=== PATIENT | male | born 1985 | race American Indian/Alaskan Native ===

== ENCOUNTER 2018-09-28 06:43 | Inpatient (IN) | payer MEDICAID, OTHER ==
[2018-09-28 07:03] VITALS: BMI 25.7
[2018-09-28 07:07] VITALS: O2SAT 100
--- NOTE | 2018-09-28 08:15 | ED PDOC ---
HPI: Psych/Substance Abuse Time Seen by Provider: 09/28/18 07:09 Chief Complaint (Nursing): Psychiatric Evaluation Chief Complaint (Provider): Psychiatric Evaluation History Per: Patient History/Exam Limitations: no limitations Associated Symptoms: Agitation Additional Complaint(s): 33 years old male presents to ER with agitation reporting he ran out of his medications. Patient is paranoid, pacing and agitated. He responds to action. Patient given Haldol and Ativan which he wanted. PMD: None provided Past Medical History Reviewed: Historical Data, Nursing Documentation, Vital Signs Vital Signs: Last Vital Signs Temp 98 F 09/28/18 08:00 Pulse 83 09/28/18 08:00 Resp 18 09/28/18 08:00 BP 128/70 09/28/18 08:00 Pulse Ox 100 09/28/18 08:00 - Medical History PMH: HTN, Schizophrenia Denies: Diabetes, Hepatitis, HIV, Chronic Kidney Disease, Seizures, Sexually Transmitted Disease - Surgical History Surgical History: No Surg Hx - Family History Family History: States: Unknown Family Hx - Social History Current smoker - smoking cessation education provided: Yes Alcohol: None Drugs: Cannabis (Marijuana) - Immunization History Hx Tetanus Toxoid Vaccination: No Hx Influenza Vaccination: No Hx Pneumococcal Vaccination: No - Home Medications Home Medications: Ambulatory Orders Medication Instructions Recorded Docusate [Colace] 100 mg PO BID 02/12/16 Lisinopril 5 mg PO DAILY 02/12/16 Paliperidone [Invega] 1.5 mg PO DAILY 02/12/16 Risperidone [Risperdal] 2 mg PO HS 02/12/16 Zolpidem [Ambien] 5 mg PO HS 02/12/16 buPROPion [Bupropion HCl] 75 mg PO DAILY 02/12/16 cloNIDine [Catapres] 0.1 mg PO HS 02/12/16 Ibuprofen [Motrin] 600 mg PO TID #21 tab 02/16/16 - Allergies Allergies/Adverse Reactions: Allergies Allergy/AdvReac Type Severity Reaction Status Date / Time No Known Allergies Allergy Verified 09/28/18 07:03 Review of Systems ROS Statement: Except As Marked, All Systems Reviewed And Found Negative Psych: Positive for: Other (Agitation) Physical Exam - Reviewed Nursing Documentation Reviewed: Yes Vital Signs Reviewed: Yes - Physical Exam Appears: Positive for: Well, No Acute Distress Head Exam: Positive for: ATRAUMATIC, NORMOCEPHALIC Skin: Positive for: Normal Color, Warm, Dry Eye Exam: Positive for: Normal appearance, EOMI, PERRL Neck: Positive for: Normal, Painless ROM, Supple Cardiovascular/Chest: Positive for: Regular Rate, Rhythm. Negative for: Murmur Respiratory: Positive for: Normal Breath Sounds. Negative for: Wheezing Gastrointestinal/Abdominal: Positive for: Normal Exam, Soft. Negative for: Tenderness Back: Positive for: Normal Inspection. Negative for: L CVA Tenderness, R CVA Tenderness Extremity: Positive for: Normal ROM. Negative for: Pedal Edema, Swelling Neurologic/Psych: Positive for: Alert, Oriented (to place and person), Mood/Affect (agitated and has some paranoia) - Laboratory Results Result Diagrams: 09/28/18 13:00 09/28/18 08:35 - ECG O2 Sat by Pulse Oximetry: 100 (RA) Pulse Ox Interpretation: Normal Medical Decision Making Medical Decision Making: Time: 0730 Initial Impression: Paranoia, delusions. Initial Plan: --Alcohol serum --BMP --Drug screen --Crisis evaluation --CBC --Ativan 2 mg IM --Haldol 5 mg IM --1:1 Observation --Urinalysis 1230 Labs reviewed and show elevated WBC of 14.2. Patient to be screened by [facility]. Will obtain CXR and EKG as part of plan. Scribe Attestation: Documented by Kathrine Moore, acting as a scribe for Taylor Liriano MD. Provider Scribe Attestation: All medical record entries made by the Scribe were at my direction and personally dictated by me. I have reviewed the chart and agree that the record accurately reflects my personal performance of the history, physical exam, medical decision making, and the department course for this patient. I have also personally directed, reviewed, and agree with the discharge instructions and disposition. Patient is medically cleared. There is no obvious cause of his leukocytosis but there is no evidence of an infectious process at present. Disposition - Clinical Impression Clinical Impression: Paranoid schizophrenia - Patient ED Disposition Is Patient to be Admitted: Yes Doctor Will See Patient In The: Hospital - Disposition Disposition: Transfer of Care Disposition Time: 14:00 Condition: FAIR Instructions: Schizophrenia Forms: [facility] (Thai) - Pt Status Changed To: Hospital Disposition Of: Inpatient - Admit Certification Admit to Inpatient:: After my assessment, the patient will require ho spitalization for at least two midnights. This is because of the severity of symptoms shown, intensity of services needed, and/or the medical risk in this patient being treated as an outpatient. - POA Present On Arrival: None
[2018-09-28 09:16] LABS: BLOOD UREA NITROGEN 14 mg/dl (9-20); CALCIUM 9.6 mg/dL (8.4-10.2); GFR NON-AFRICAN AMERICAN > 60
[2018-09-28 09:20] LABS: BASO % 0.2 % (0.0-2.0); EOS % 0.2 % (0.0-4.0); HEMOGLOBIN 13.9 g/dL (12.0-18.0); LYMPH # 1.7 K/uL (1.0-4.3); LYMPH % 12.1 % (20.0-40.0); MEAN CELL VOLUME 89.7 fl (80.0-94.0); MEAN CORPUSCULAR HEMOGLOBIN 29.6 pg (27.0-31.0); MEAN PLATELET VOLUME 9.3 fl (7.2-11.7); MONO % 7.2 % (0.0-10.0); NEUT # 11.4 K/uL (1.8-7.0); NEUT % 80.3 % (50.0-75.0); NRBC % 0.2 % (0.0-0.0); RBC 4.71 Mil/uL (4.40-5.90); RED CELL DISTRIBUTION WIDTH 14.8 % (11.5-14.5); WHITE BLOOD COUNT 14.2 K/uL (4.8-10.8)
[2018-09-28 12:14] LABS: URINE BACTERIA RARE (<OCC); URINE BILIRUBIN NEGATIVE (NEGATIVE); URINE BLOOD NEGATIVE (NEGATIVE); URINE CLARITY CLEAR (Clear); URINE COLOR YELLOW (YELLOW); URINE GLUCOSE (UA) NEG (NEGATIVE); URINE LEUKOCYTE ESTERASE NEG Leu/uL (Negative); URINE PROTEIN NEGATIVE (NEGATIVE); URINE UROBILINOGEN 0.2-1.0 mg/dL (0.2-1.0)
[2018-09-28 12:25] LABS: BARBITURATES, UR NEGATIVE (NEGATIVE); BENZODIAZEPINES, UR NEGATIVE (NEGATIVE); OPIATES, UR NEGATIVE (NEGATIVE); PHENCYCLIDINE, UR NEGATIVE (NEGATIVE)
--- NOTE | 2018-09-28 12:57 | RAD ---
Date of service: 09/28/2018 HISTORY: [facility] [place] COMPARISON: No prior. TECHNIQUE: Chest PA and lateral FINDINGS: LUNGS: No active pulmonary disease. PLEURA: No significant pleural effusion identified. No pneumothorax apparent. CARDIOVASCULAR: No aortic atherosclerotic calcification present. Normal cardiac size. No pulmonary vascular congestion. OSSEOUS STRUCTURES: No significant abnormalities. VISUALIZED UPPER ABDOMEN: Normal. OTHER FINDINGS: None. IMPRESSION: No active disease.
[2018-09-28 13:22] LABS: BASO # 0.1 K/uL (0.0-0.2); BASO % 0.6 % (0.0-2.0); EOS # 0.1 K/uL (0.0-0.7); EOS % 0.5 % (0.0-4.0); HEMOGLOBIN 14.1 g/dL (12.0-18.0); LYMPH # 3.1 K/uL (1.0-4.3); LYMPH % 19.4 % (20.0-40.0); MEAN CELL VOLUME 90.2 fl (80.0-94.0); MEAN CORPUSCULAR HEMOGLOBIN 29.5 pg (27.0-31.0); MEAN CORPUSCULAR HGB CONC 32.7 g/dL (33.0-37.0); MEAN PLATELET VOLUME 9.2 fl (7.2-11.7); MONO # 1.3 K/uL (0.0-0.8); MONO % 8.5 % (0.0-10.0); NEUT # 11.3 K/uL (1.8-7.0); RBC 4.77 Mil/uL (4.40-5.90); WHITE BLOOD COUNT 15.9 K/uL (4.8-10.8)
--- NOTE | 2018-09-28 15:02 | ED PDOC ---
- Laboratory Results Result Diagrams: 09/28/18 13:00 09/28/18 08:35 Lab Results: Troponin I < 0.0120 ng/mL (0.00-0.120) 09/28/18 12:52 Urine Color Yellow (YELLOW) 09/28/18 11:40 Urine Clarity Clear (Clear) 09/28/18 11:40 Urine pH 6.0 (5.0-8.0) 09/28/18 11:40 Ur Specific [place] 1.010 (1.003-1.030) 09/28/18 11:40 Urine Protein Negative mg/dL (NEGATIVE) 09/28/18 11:40 Urine Glucose (UA) Neg mg/dL (NEGATIVE) 09/28/18 11:40 Urine Ketones Negative mg/dL (NEGATIVE) 09/28/18 11:40 Urine Blood Negative (NEGATIVE) 09/28/18 11:40 Urine Nitrate Negative (NEGATIVE) 09/28/18 11:40 Urine Bilirubin Negative (NEGATIVE) 09/28/18 11:40 Urine Urobilinogen 0.2-1.0 mg/dL (0.2-1.0) 09/28/18 11:40 Ur Leukocyte Esterase Neg [place]/uL (Negative) 09/28/18 11:40 Urine Microscopic WBC 1 /hpf (0-5) 09/28/18 11:40 Urine Bacteria Rare (<OCC) 09/28/18 11:40 - ECG O2 Sat by Pulse Oximetry: 100 (RA) Pulse Ox Interpretation: Normal Medical Decision Making Medical Decision Making: Time: 1500 Patient signed out to me by Dr. Liriano, pending sobriety/ crisis evaluation. CT shows colitis and Dr. Gomez, the hospitalist said no for admission. Scribe Attestation: Documented by Kathrine Moore, acting as a scribe for Vladimir Noriega MD. Provider Scribe Attestation: All medical record entries made by the Scribe were at my direction and personally dictated by me. I have reviewed the chart and agree that the record accurately reflects my personal performance of the history, physical exam, medical decision making, and the department course for this patient. I have also personally directed, reviewed, and agree with the discharge instructions and disposition. Disposition - Clinical Impression Clinical Impression: Paranoid schizophrenia - Disposition Condition: FAIR
--- NOTE | 2018-09-28 18:00 | PCM.BM ---
Treatment Plan Problems - Problems identified on initial assessmt Auditory Hallucinations Date Initiated: 09/28/18 Time Initiated: 17:59 Assessment reference: NA Status: Active Medication nonadherence Date Initiated: 09/28/18 Time Initiated: 18:00 Assessment reference: NA Status: Active Ineffective Family Coping: Compromised Date Initiated: 09/28/18 Time Initiated: 18:02 Assessment reference: NA Status: Active Treatment assets and liabiliti Patient Assests: ADL independent, physically healthy Patient Liabilities: poor support system Family Contact Family involvement: Family/SO is involved Family contact: Patient agrees to contact
[2018-09-28] MEDS ORDERED: Alum-Mag Hydrox-Simethicone Susp (30 mL) PO PRN (19:39)
[2018-09-28] MEDS ORDERED: Magnesium Hydroxide Susp 30 ml UD PO PRN (19:39)
--- NOTE | 2018-09-29 10:27 | PCM.PSYCH ---
Initial Psychiatric Evaluation - Initial Psychiatric Evaluation Chief Complaint (in patient's own words): I know you are trying to transfer yoyur energy into me History of Present Illness and Precipitating Events: pt is 33 ys old male with previous diagnosis of schizophrenia paranoid type, pt presented to ER with disorganized behaviour and paranoid delusions stating he is tired as he knows people on the street are after him and trying to read his mind pt on evaluation on the unit angry, irritable, labile , pt appears internally preoccupied with thought blocking , responding to internal stimuli, slamming the phone, paranoid towards staff, stating they are trying to transfer negative energy on him collateral information/ patients grandmother, Cecelia, As per Cecelia, the patient was just discharged from [facility] [place] this past Monday. Cecelia stated that her grandson is diagnosed w/ Bipolar and Schizophrenia. As soon as he was discharged, the patient came in the house and was making threatening statements towards her and his sister. Current Medications: Active Medications Generic Name Dose Route Start Last Admin Trade Name Freq PRN Reason Stop Dose Admin Acetaminophen 650 mg 09/28/18 19:39 Tylenol 325mg Tab PO Q4 PRN pain level 4-7 Al Hydrox/Mg Hydrox/Simethicone 30 ml 09/28/18 19:39 Maalox Plus 30 Ml PO Q4 PRN Dyspepsia Diphenhydramine HCl 50 mg 09/28/18 19:39 Benadryl IM Q6 PRN Extrapyramidal S/S Unable PO Diphenhydramine HCl 50 mg 09/28/18 19:39 09/28/18 19:48 Benadryl PO 50 mg Q6 PRN Administration Extrapyramidal Symptoms Diphenhydramine HCl 50 mg 09/28/18 19:41 09/29/18 00:29 Benadryl PO 50 mg HS PRN Administration Sleep Haloperidol 5 mg 09/28/18 19:39 09/29/18 08:35 Haldol PO 5 mg Q4 PRN Administration Agitation Haloperidol Lactate 5 mg 09/28/18 19:39 Haldol IM Q4 PRN Agitation, Unable to Take PO Lorazepam 2 mg 09/28/18 19:39 Ativan IM Q6H PRN Anxiety/Agitation,Unable PO Lorazepam 2 mg 09/28/18 19:39 09/29/18 04:50 Ativan PO 2 mg Q6H PRN Administration Anxiety/Agitation Magnesium Hydroxide 30 ml 09/28/18 19:39 Milk Of Magnesia PO HS PRN Constipation Past Psychiatric History - Past Psychiatric History Explanation of prior treatment: multiple hospitalizations, hx of non compliance History of ETOH/Drug Use: cannabis abuse Pertinent Medical Hx (Current Medical&Sleep Prob, Allergies): Allergies Allergy/AdvReac Type Severity Reaction Status Date / Time No Known Allergies Allergy Verified 09/28/18 07:03 Unobtainable 09/28/18 Mental Status Examination - Personal Presentation Personal Presentation: Looks stated age - Affect Affect: Constricted Additional comments: angry , labile - Motor Activity Motor Activity: Psychomotor Agitation - Reliability in Providing Information Reliability in Providing Information: Poor, due to alteration in thoughts, Poor, due to altered mood - Speech Speech: Disorganized, Irrelevant - Mood Mood: Anxious - Formal Thought Process Formal Thought Process: Hallucinations, Delusions, Paranoia, Loosening of associations, Circumstantial - Hallucinations/Delusions Hallucinations: Auditory - Obsessions/Compulsions Obsessions: No Compulsions: No - Cognitive Functions Orientation: Person, Place Sensorium: Alert Attention/Concentration: Easily distracted Judgement: Imparied, as evidence by: Poor judgement, Imparied, as evidence by: Lack of insight into illness - Risk Risk: Homicidal, Diminished functioning - Strength & Assets Inventory Strength & Assets Inventory: Life experience - Limitations Additional comments: poor compliance DSM 5 DX - DSM 5 DSM 5 Diagnosis: schizophrenia paranoid type cannabis abuse - Recommended/Plan of Treatment Treatment Recommendations and Plan of Treatment: start haldol 5mg bid and 5mg qhs cogentin 1mg bid and 1mg qhs depakote 500mg bid monitor pt for psychopharmacological effects and side effects profile
[2018-09-29] MEDS: DiphenhydrAMINE 50 mg/ml Inj IM PRN (10:31)
--- NOTE | 2018-09-29 14:42 | CP.PCM.CON ---
History of Present Illness - History of Present Illness History of Present Illness: Reason for Consult: Per hospital protocol HPI: 33 year old male PMH schizophrenia admitted for schizophrenia and paranoid delusions. No other complaints at this time, MILDRED Eng. ROS: Per HPI, all other systems reviewed and neg Past Patient History - Infectious Disease Hx of Infectious Diseases: None - Past Medical History & Family History Past Medical History?: Yes - Past Social History Alcohol: None Drugs: Cannabis (Marijuana) - CARDIAC Hx Cardiac Disorders: Yes - PULMONARY Hx Tuberculosis: No - NEUROLOGICAL Hx Neurological Disorder: No Hx Seizures: No - HEENT Hx HEENT Problems: No - RENAL Hx Chronic Kidney Disease: No - ENDOCRINE/METABOLIC Hx Endocrine Disorders: No - HEMATOLOGICAL/ONCOLOGICAL Hx Blood Disorders: No Hx Human Immunodeficiency Virus (HIV): No - INTEGUMENTARY Hx Dermatological Problems: No - MUSCULOSKELETAL/RHEUMATOLOGICAL Hx Musculoskeletal Disorders: No - GASTROINTESTINAL Hx Gastrointestinal Disorders: Yes (constipation) - GENITOURINARY/GYNECOLOGICAL Hx Sexually Transmitted Disorders: No - PSYCHIATRIC Hx Anxiety: Yes Hx Schizophrenia: Yes Hx Substance Use: Yes (mj) - SURGICAL HISTORY Hx Surgeries: Yes Hx Herniorrhaphy: Yes (hernia repair 7-18 lt inguinal) - ANESTHESIA Hx Anesthesia: Yes Hx Anesthesia Reactions: No Meds Allergies/Adverse Reactions: Allergies Allergy/AdvReac Type Severity Reaction Status Date / Time No Known Allergies Allergy Verified 09/28/18 07:03 - Medications Medications: Current Medications Acetaminophen (Tylenol 325mg Tab) 650 mg PO Q4 PRN PRN Reason: pain level 4-7 Al Hydrox/Mg Hydrox/Simethicone (Maalox Plus 30 Ml) 30 ml PO Q4 PRN PRN Reason: Dyspepsia Benztropine Mesylate (Cogentin) 1 mg PO BID RENY Benztropine Mesylate (Cogentin) 1 mg PO HS RENY Diphenhydramine HCl (Benadryl) 50 mg IM Q6 PRN PRN Reason: Extrapyramidal S/S Unable PO Last Admin: 09/29/18 10:31 Dose: 50 mg Diphenhydramine HCl (Benadryl) 50 mg PO Q6 PRN PRN Reason: Extrapyramidal Symptoms Last Admin: 09/28/18 19:48 Dose: 50 mg Diphenhydramine HCl (Benadryl) 50 mg PO HS PRN PRN Reason: Sleep Last Admin: 09/29/18 00:29 Dose: 50 mg Divalproex Sodium (Depakote Dr(*Bid*)) 500 mg PO BID RENY Haloperidol (Haldol) 5 mg PO Q4 PRN PRN Reason: Agitation Last Admin: 09/29/18 08:35 Dose: 5 mg Haloperidol (Haldol) 5 mg PO BID RENY Haloperidol (Haldol) 5 mg PO HS RENY Haloperidol Lactate (Haldol) 5 mg IM Q4 PRN PRN Reason: Agitation, Unable to Take PO Last Admin: 09/29/18 10:30 Dose: 5 mg Lorazepam (Ativan) 2 mg IM Q6H PRN PRN Reason: Anxiety/Agitation,Unable PO Last Admin: 09/29/18 10:32 Dose: 2 mg Lorazepam (Ativan) 2 mg PO Q6H PRN PRN Reason: Anxiety/Agitation Last Admin: 09/29/18 04:50 Dose: 2 mg Magnesium Hydroxide (Milk Of Magnesia) 30 ml PO HS PRN PRN Reason: Constipation Physical Exam - Constitutional Additional comments: GEN: WDWN, alert, cooperative HEENT: NCAT, PERRL, EOMI HEART: RRR, +S1S2, NO MRG LUNG: CTAB, NO WRR ABD: soft, NT, ND, No HSM, No masses EXT: normal pedal pulses NEURO: awake, alert SKIN: warm, dry PSYCH: normal mood, normal affect Results - Vital Signs Recent Vital Signs: Last Vital Signs Temp 98.0 F 09/29/18 09:37 Pulse 100 H 09/29/18 09:37 Resp 20 09/29/18 09:37 BP 123/75 09/29/18 09:37 Pulse Ox 100 09/28/18 16:32 - Labs Result Diagrams: 09/28/18 13:00 09/28/18 08:35 Labs: Laboratory Results - last 24 hr 09/29/18 08:08 Triglycerides 48 Cholesterol 142 LDL Cholesterol Direct 73 HDL Cholesterol 53 Thyroxine (T4) 8.25 TSH 3rd Generation 1.95 Assessment & Plan - Assessment and Plan (Free Text) Plan: 33 year old male PMH schizophrenia admitted for schizophrenia and paranoid delusions. No other complaints at this time, MILDRED Eng. Schizophrenia management per psych
[2018-09-29 16:13] VITALS: BP 114/75; PULSE 97; RESP 18
[2018-09-29] MEDS: Divalproex 500 mg DR(BID formulation) PO SCH (17:57)
[2018-09-30] MEDS: DiphenhydrAMINE 50 mg/ml Inj IM PRN (03:28)
[2018-09-30] MEDS: Divalproex 500 mg DR(BID formulation) PO SCH (09:04)
[2018-09-30] MEDS ORDERED: Petrolatum UD PAK TOP PRN (09:42)
--- NOTE | 2018-09-30 09:52 | PCM.BM ---
Treatment Plan Problems - Problems identified on initial assessmt Problem 2 Date Initiated: 09/28/18 Time Initiated: 18:00 Auditory Hallucinations Date Initiated: 09/28/18 Time Initiated: 17:59 Assessment reference: NA Status: Active Medication nonadherence Date Initiated: 09/28/18 Time Initiated: 18:00 Assessment reference: NA Status: Active Ineffective Family Coping: Compromised Date Initiated: 09/28/18 Time Initiated: 18:02 Assessment reference: NA Status: Active High Risk Violence Date Initiated: 09/30/18 Time Initiated: 09:50 Assessment reference: NA Status: Active Ineffective Impulse Control Date Initiated: 09/30/18 Time Initiated: 09:50 Assessment reference: NA Status: Active Treatment assets and liabiliti Patient Assests: ADL independent, physically healthy Patient Liabilities: poor support system - Milieu Protocol Milieu Narrative: start haldol 5mg bid and 5mg qhs cogentin 1mg bid and 1mg qhs depakote 500mg bid monitor pt for psychopharmacological effects and side effects profile Family Contact Family involvement: Family/SO is involved Family contact: Patient agrees to contact Discharge/Continuing Care - Treatment Team Participation Patient/Family/SO Statement: start haldol 5mg bid and 5mg qhs cogentin 1mg bid and 1mg qhs depakote 500mg bid monitor pt for psychopharmacological effects and side effects profile
--- NOTE | 2018-09-30 10:23 | CARD ---
APPROVED REPORT Date of service: 09/28/2018 EKG Measurement Heart [id number] <Conclusion> Sinus rhythm with marked sinus arrhythmia T wave abnormality, consider anterior ischemia or could be juvinile T waves Abnormal ECG
--- NOTE | 2018-09-30 12:00 | PCM.PYCHDC ---
Mental Status Examination - Mental Status Examination Orientation: Person, Place Mood: Anxious Speech: Pressured Attention: Poor Concentration: Poor Association: Loose Fund of Knowledge: Poor Formal Thought Process: Hallucinations, Delusions, Paranoia Description of patient's judgement and insight: poor insight and judgment Psychotic Thoughts and Behaviors: pt internally preoccupied Suicidal Ideation: No Current Homicidal Ideation?: No Discharge Summary - Discharge Note Reason for Hospitalization: pt is 33 ys old male with previous diagnosis of schizophrenia paranoid type, pt presented to ER with disorganized behaviour and paranoid delusions stating he is tired as he knows people on the street are after him and trying to read his mind pt on evaluation on the unit angry, irritable, labile , pt appears internally preoccupied with thought blocking , responding to internal stimuli, slamming the phone, paranoid towards staff, stating they are trying to transfer negative energy on him collateral information/ patients grandmother, Cecelia, As per Cecelia, the patient was just discharged from [facility] [place] this past Monday. Cecelia stated that her grandson is diagnosed w/ Bipolar and Schizophrenia. As soon as he was discharged, the patient came in the house and was making threatening statements towards her and his sister. Laboratory Data: Abnormal Lab Results 09/29/18 09/29/18 08:08 08:08 Hemoglobin A1c 5.6 RPR Nonreactive Consultations:: List each consultation separately and include: 1. Reason for request. 2. Findings. 3. Follow-up Summary of Hospital Course include:: 1. Description of specific treatment plan utilized for patients during their course of treatmen. 2. Summarize the time- course for resolution of acute symptoms and/or regressed behaviors. 3. Describe issues identified and worked on during hospitalization. 4. Describe medication utilized. 5. Describe medical problems identified and treated. 6. Reassessment of suicide risk Summary of Hospital Course: pt on admission was floridly psychotic delusional disorganized paranoid, pt signed 48 hour noticerequesting to be discharged, patient was screened and accepted for involuntary admission for further stabilization - Final Diagnosis (DSM 5) Condition upon Discharge: FAIR DSM 5: schizoaffective disorder bipolar type Disposition: DISCHARGE TO PSYCH HOSPITAL Follow-up Treatment Plan: start haldol 5mg bid and 5mg qhs cogentin 1mg bid and 1mg qhs depakote 500mg bid monitor pt for psychopharmacological effects and side effects profile - Smoking Cessation Smoking Cessation Medication prescribed: No - Antipsychotic Medications Pt discharged on 2 or more routine antipsychotic medications: No
[2018-09-30 14:21] VITALS: TEMP 99.1
== END 2018-09-30 15:35 | DRG 750 ==
LOC: H.ER 06:43 → H.ERHOLD 14:13 → H.PSYCH 16:48
PROVIDERS: ADMIT Psychiatry & Neurology Psychiatry; ATTEND Psychiatry & Neurology Psychiatry
PROC: GZ56ZZZ Individual Psychotherapy, Supportive (ICD-10-PCS; principal; 2018-09-28)
PROC: GZ51ZZZ Individual Psychotherapy, Behavioral (ICD-10-PCS; 2018-09-28)
DX: F25.0 Schizoaffective disorder, bipolar type (principal); F20.0 Paranoid schizophrenia; I10 Essential (primary) hypertension; Z91.19 Patient's noncompliance with other medical treatment and regimen; F41.9 Anxiety disorder, unspecified; K59.00 Constipation, unspecified; Z79.899 Other long term (current) drug therapy; F12.10 Cannabis abuse, uncomplicated; F17.200 Nicotine dependence, unspecified, uncomplicated